=== PATIENT | female | born 1965 ===

== ENCOUNTER 2021-09-23 05:35 | Observation (INO) ==
[2021-09-23] MEDS ORDERED: Buffered Lidocaine 1% SYRIN 1 ml INTRADERM ONE (06:00)
[2021-09-23] MEDS ORDERED: Lactated Ringers 1000 ml BAG 1,000 ML IV SCH (06:00)
[2021-09-23] MEDS ORDERED: ceFAZolin 2 GM PREMIX 2 GM/50 ML BAG ONE (06:06)
[2021-09-23] MEDS ORDERED: Bupivacaine 0.5% 50 ML MDV VIAL ONE (06:59)
[2021-09-23] MEDS ORDERED: Lidocaine 1% w EPI 1:200,000 SDV 30 ML VIAL ONE (06:59)
[2021-09-23] MEDS ORDERED: Rocuronium 50 mg VIAL 10 mg/ml 5 ml VIAL (50 mg) ONE (07:02)
[2021-09-23] MEDS ORDERED: fentaNYL 100 mcg/2 ml 50 MCG/ML VIAL ONE (07:02)
[2021-09-23] MEDS ORDERED: Midazolam 2 mg/2 ml VIAL 1 mg/ml 2 ml VIAL (2 mg) ONE (07:02)
[2021-09-23] MEDS ORDERED: ROPIVACAINE 5 MG/ML 30 ML BTL (0.5%) ONE (07:03)
[2021-09-23] MEDS ORDERED: Dexmedetomidine 200 mcg/2 ml 2 ml VIAL (200 mcg) ONE (07:03)
[2021-09-23] MEDS ORDERED: Propofol 10 MG/ML 20 ML BTL ONE (07:03)
[2021-09-23] MEDS ORDERED: Lidocaine 2% PF 5 ML VIAL ONE (07:06)
[2021-09-23] MEDS ORDERED: Naloxone 0.4 mg VIAL 0.4 mg/ml 1 ml VIAL IV PRN (10:30)
[2021-09-23] MEDS ORDERED: Ondansetron 4 mg VIAL 2 MG/ML 2 ml VIAL IV PRN ×2 (10:30→11:05)
[2021-09-23] MEDS ORDERED: fentaNYL 100 mcg/2 ml 50 MCG/ML VIAL IV PRN (10:30)
[2021-09-23] MEDS ORDERED: oxyCODONE/Acetamin 5/325 mg TAB PO PRN (10:30)
[2021-09-23] MEDS ORDERED: Lactulose 30 ml UDC PO PRN (11:05)
[2021-09-23] MEDS ORDERED: Magnesium Hydroxide LIQ 30 ML UDC PO PRN (11:05)
[2021-09-23] MEDS ORDERED: Ondansetron ODT 4 mg TAB 4 MG TAB PO PRN (11:05)
[2021-09-23] MEDS ORDERED: Morphine 2 MG/ML SYRINGE IV PRN (11:05)
[2021-09-23] MEDS: Lactated Ringers 1000 ml BAG 1,000 ML IV SCH ×2 (12:58→23:42)
[2021-09-23] MEDS ORDERED: FOOD SUPPLEMT LACTOSE REDUCED PO SCH (14:00)
[2021-09-23] MEDS: ceFAZolin VIAL 1 GM in NS 0.9% 50 ML 50 ML IVPB SCH ×2 (16:20→23:42)
[2021-09-23] MEDS ORDERED: Dextran 70/Hypromellose Tears Eye Drops 15 ml BTL (for Artificials Tears) BOTH EYES PRN (21:00)
[2021-09-23] MEDS: Magnesium Hydroxide LIQ 30 ML UDC PO SCH (22:21)
[2021-09-24 06:30] LABS: Hematocrit 34 % (35-47); Hemoglobin 11.6 g/dL (12.0-16.0); Mean Platelet Volume 7.8 fL (7.4-10.4); Platelet Count 269 10^3/uL (150-450)
[2021-09-24 07:15] LABS: Calcium 8.3 mg/dL (8.6-10.3); Potassium 3.6 mmol/L (3.5-5.0); eGFR CKD-EPI 104.5 (>60)
[2021-09-24] MEDS: ceFAZolin VIAL 1 GM in NS 0.9% 50 ML 50 ML IVPB SCH (08:32)
[2021-09-24] MEDS: Magnesium Hydroxide LIQ 30 ML UDC PO SCH ×2 (08:33→21:20)
[2021-09-24] MEDS: Vitamin THERAPEUTIC TAB PO SCH (08:33)
[2021-09-24] MEDS: Docusate LIQ 100 MG/10 ML UDC PO SCH (21:21)
[2021-09-25 06:29] LABS: Hematocrit 34 % (35-47); Hemoglobin 11.7 g/dL (12.0-16.0); Mean Platelet Volume 7.7 fL (7.4-10.4); Platelet Count 270 10^3/uL (150-450)
[2021-09-25 08:35] VITALS: BP 164/91
[2021-09-25] MEDS: Docusate LIQ 100 MG/10 ML UDC PO SCH (09:32)
[2021-09-25] MEDS: Magnesium Hydroxide LIQ 30 ML UDC PO SCH ×2 (09:32→09:35)
[2021-09-25] MEDS: Vitamin THERAPEUTIC TAB PO SCH (09:32)
[2021-09-26] MEDS ORDERED: Carbamide Peroxide 6.5% OTIC 15 ML BTL BOTH EARS ONE (09:00)
== END 2021-09-25 12:10 | disposition home or self-care (01) ==
LOC: SSU → INTOOBSV 05:35 → AA 05:35 → EDSTATUS 07:30
PROVIDERS: ADMIT Orthopaedic Surgery Sports Medicine; ATTEND Orthopaedic Surgery Sports Medicine